=== PATIENT | female | born 1955 | race Caucasian/White ===

== ENCOUNTER 2019-04-06 14:41 | Day surgery (SDC) | payer MEDICAID ==
[~2019-04-06] VITALS: Ht 167.6 cm; Wt 68.2 kg
[~2019-04-06 14:41] MED LIST: ALBU18HF2 INH; ASPI-1264 PO; CALC300T4 PO; CETI-102 PO; CHOL100024 PO; FERR325T28 PO; IBUP-1985 PO; LEVA15HF4 INH; LEVO50TA8 PO; MINO100T PO; MONT10TA21 PO; MULT-1150 PO; PHEN-893 PO; POTA99TA25 PO; [UNRECOGNIZED DRUG - SUPPLY]
[2019-04-06 14:50] VITALS: BP 131/71
[2019-04-06] MEDS ORDERED: fentaNYL/PF 50MCG/1 ML 2ML syringe ONE (14:55)
[2019-04-06] MEDS ORDERED: MIDAZolam 5mg/5ml vial ONE (14:55)
[2019-04-06] MEDS ORDERED: TRAZ-251 PO (14:57)
[2019-04-06 16:19] VITALS: BP 113/76
[2019-04-06 16:29] VITALS: BP 110/70
[2019-04-06 16:39] VITALS: BP 116/74
[2019-04-06 16:49] VITALS: BP 115/78
== END 2019-04-06 17:01 | disposition home or self-care (01) ==
LOC: GI LAB 14:41
PROVIDERS: ATTEND Internal Medicine Gastroenterology
DX: Z12.11 Encounter for screening for malignant neoplasm of colon (principal); R12 Heartburn; R11.0 Nausea; K21.9 Gastro-esophageal reflux disease without esophagitis; K44.9 Diaphragmatic hernia without obstruction or gangrene; K31.7 Polyp of stomach and duodenum; K22.8 Other specified diseases of esophagus; K63.89 Other specified diseases of intestine; K64.8 Other hemorrhoids; Z86.010 Personal history of colon polyps
CPT/HCPCS: 43239; 43251; 45378; 99152; 99153; C1773; J2250; J3010; J7040; A4620

== ENCOUNTER → 2019-11-11 | Day surgery (SDC) | payer MEDICAID ==
[~2019-11-11] MED LIST changes: -ASPI-1264 PO; -CETI-102 PO; +CETI-90 PO; -CHOL100024 PO; -FERR325T28 PO; -POTA99TA25 PO; +TRAZ-251 PO; -[UNRECOGNIZED DRUG - SUPPLY]
== END | disposition home or self-care (01) ==
LOC: RAD 08:58
PROVIDERS: ATTEND Surgery
DX: K21.9 Gastro-esophageal reflux disease without esophagitis (principal); Z98.890 Other specified postprocedural states; Z90.49 Acquired absence of other specified parts of digestive tract; Z88.8 Allergy status to other drugs, medicaments and biological substances; Z88.2 Allergy status to sulfonamides
CPT/HCPCS: 78264; A9541

== ENCOUNTER 2019-11-18 09:27 | Outpatient (CLI) | payer MEDICAID ==
[~2019-11-18 09:27] MED LIST changes: +BARIUM SULFATE 340 ML SUSP.RECON***PROCEDURE AREA ONLY**DONT ENTER PO ONE; +SIMETHICONE/SOD BICARB/CIT AC PACKET PO ONE
== END 2019-11-18 23:59 | disposition home or self-care (01) ==
LOC: RAD 09:27
DX: K21.9 Gastro-esophageal reflux disease without esophagitis (principal)